=== PATIENT | female | born 1985 | race Caucasian/White ===

== ENCOUNTER 2016-08-12 10:41 | Emergency (ER) | payer MEDICAID ==
[~2016-08-12] VITALS: Ht 157.5 cm; Wt 59.9 kg
[2016-08-12 14:32] LABS: BASOPHIL % 0.4 % (0-2); PLATELET COUNT 285 x10^3mcL (130-400); RED CELL DISTRIBUTION WIDTH 12.7 % (11.5-14.5)
[2016-08-12 14:35] LABS: CALCIUM 8.6 mg/dL (8.5-10.1); CARBON DIOXIDE 27.9 mmol/L (21-32); CHLORIDE SERUM 105 mmol/L (98-107); CREATININE SERUM 0.6 mg/dL (0.6-1.0); GFR1 > 60 mL/min; GLUCOSE SERUM 79 mg/dL (74-106); POTASSIUM SERUM 4.2 mmol/L (3.5-5.1); SODIUM SERUM 140 mmol/L (136-145)
[2016-08-12 14:48] LABS: ALBUMIN 3.8 g/dL (3.4-5.0); ALKALINE PHOSPHATASE 70 U/L (46-116); ALT/SGPT 44 U/L (14-59); AST/SGOT 21 U/L (15-37); BILIRUBIN TOTAL 0.3 mg/dL (0.20-1.00); TOTAL PROTEIN, SERUM 7.7 g/dL (6.4-8.2)
[2016-08-12 15:10] LABS: microscopic required? NO
[2016-08-12 15:44] LABS: urine erythrocyte NEGATIVE (NEGATIVE)
[2016-08-12 16:43] VITALS: BP 114/71
== END 2016-08-12 16:43 | disposition home or self-care (01) ==
LOC: ED 10:41
PROVIDERS: Emergency Medicine
DX: M79.1 Myalgia (principal); R20.9 Unspecified disturbances of skin sensation

== ENCOUNTER 2017-03-21 08:20 | Emergency (ER) | payer MEDICAID ==
[~2017-03-21] VITALS: Ht 157.5 cm; Wt 59.2 kg
[2017-03-21 08:24] VITALS: BP 111/72
== END 2017-03-21 09:55 | disposition home or self-care (01) ==
LOC: ED 08:20
DX: B34.9 Viral infection, unspecified (principal); F17.210 Nicotine dependence, cigarettes, uncomplicated; Z71.6 Tobacco abuse counseling
CPT/HCPCS: 99406

== ENCOUNTER 2017-05-25 11:09 | Emergency (ER) | payer MEDICAID ==
[~2017-05-25] VITALS: Ht 154.9 cm; Wt 59.9 kg
[2017-05-25 11:29] VITALS: BP 125/44; Ht 154.9 cm; Wt 59.9 kg
== END 2017-05-25 15:00 | disposition home or self-care (01) ==
LOC: ED 11:09
DX: O26.891 Other specified pregnancy related conditions, first trimester (principal); O21.9 Vomiting of pregnancy, unspecified; R19.7 Diarrhea, unspecified; F17.210 Nicotine dependence, cigarettes, uncomplicated; Z3A.00 Weeks of gestation of pregnancy not specified

== ENCOUNTER 2017-05-30 15:18 | Emergency (ER) | payer MEDICAID ==
[~2017-05-30] VITALS: Ht 160 cm; Wt 60.9 kg
[2017-05-30 16:06] VITALS: BP 103/77; Ht 160 cm; Wt 60.9 kg
== END 2017-05-30 19:15 | disposition home or self-care (01) ==
LOC: ED 15:18
DX: O99.511 Diseases of the respiratory system complicating pregnancy, first trimester (principal); B34.9 Viral infection, unspecified; Z3A.00 Weeks of gestation of pregnancy not specified
CPT/HCPCS: 87804

== ENCOUNTER 2017-06-06 08:33 | Emergency (ER) | payer MEDICAID ==
[~2017-06-06] VITALS: Ht 154.9 cm; Wt 62.6 kg
[2017-06-06 08:49] VITALS: BP 100/71; Ht 154.9 cm; Wt 62.6 kg
== END 2017-06-06 11:50 | disposition home or self-care (01) ==
LOC: ED 08:33
DX: R42 Dizziness and giddiness (principal); R11.2 Nausea with vomiting, unspecified; R51 Headache
CPT/HCPCS: J8597; Q0162

== ENCOUNTER 2017-06-08 09:24 | Emergency (ER) | payer MEDICAID ==
[~2017-06-08] VITALS: Ht 154.9 cm; Wt 61.2 kg
[2017-06-08 09:26] VITALS: Ht 154.9 cm; Wt 61.2 kg
[2017-06-08 09:58] LABS: microscopic required? NO
[2017-06-08 10:09] LABS: BASOPHIL % 0.3 % (0-2); PLATELET COUNT 275 x10^3mcL (130-400); RED CELL DISTRIBUTION WIDTH 12.4 % (11.5-14.5)
[2017-06-08 10:21] LABS: urine erythrocyte NEGATIVE (NEGATIVE)
[2017-06-08 10:25] LABS: CALCIUM 8.1 mg/dL (8.5-10.1); CARBON DIOXIDE 25.1 mmol/L (21-32); CHLORIDE SERUM 105 mmol/L (98-107); CREATININE SERUM 0.7 mg/dL (0.6-1.0); GFR1 > 60 mL/min; GLUCOSE SERUM 85 mg/dL (74-106); POTASSIUM SERUM 3.8 mmol/L (3.5-5.1); SODIUM SERUM 139 mmol/L (136-145)
[2017-06-08 11:55] VITALS: BP 114/74
== END 2017-06-08 12:06 | disposition home or self-care (01) ==
LOC: ED 09:24
PROVIDERS: Emergency Medicine
DX: O26.891 Other specified pregnancy related conditions, first trimester (principal); R42 Dizziness and giddiness; Z3A.01 Less than 8 weeks gestation of pregnancy
CPT/HCPCS: J2405; J7030; J8597

== ENCOUNTER 2017-06-29 16:52 | Emergency (ER) | payer MEDICAID ==
[~2017-06-29] VITALS: Ht 165.1 cm; Wt 68.0 kg
[2017-06-29 17:14] VITALS: Ht 165.1 cm; Wt 68.0 kg
[2017-06-29 18:07] VITALS: BP 118/73
== END 2017-06-29 18:33 | disposition home or self-care (01) ==
LOC: ED 16:52
DX: O26.891 Other specified pregnancy related conditions, first trimester (principal); Z3A.11 11 weeks gestation of pregnancy

== ENCOUNTER 2017-07-06 19:01 | Emergency (ER) | payer MEDICAID ==
[~2017-07-06] VITALS: Ht 157.5 cm; Wt 61.2 kg
[2017-07-06 19:05] VITALS: Ht 157.5 cm; Wt 61.2 kg
[2017-07-06 21:42] VITALS: BP 124/71
== END 2017-07-06 21:42 | disposition home or self-care (01) ==
LOC: ED 19:01
DX: O26.891 Other specified pregnancy related conditions, first trimester (principal); R10.33 Periumbilical pain; R10.13 Epigastric pain; R10.30 Lower abdominal pain, unspecified; Z3A.12 12 weeks gestation of pregnancy

== ENCOUNTER 2017-12-08 10:40 | Emergency (ER) | payer MEDICAID ==
[~2017-12-08] VITALS: Ht 157.5 cm; Wt 68.0 kg
[2017-12-08 10:45] VITALS: Ht 157.5 cm; Wt 68.0 kg
[2017-12-08 12:46] VITALS: BP 112/68
== END 2017-12-08 12:47 | disposition home or self-care (01) ==
LOC: ED 10:40
DX: O26.893 Other specified pregnancy related conditions, third trimester (principal); H61.23 Impacted cerumen, bilateral; Z3A.34 34 weeks gestation of pregnancy

== ENCOUNTER 2019-01-13 07:40 | Emergency (ER) | payer MEDICAID ==
[~2019-01-13] VITALS: Ht 157.5 cm; Wt 59.0 kg
[2019-01-13 07:48] VITALS: Ht 157.5 cm; Wt 59.0 kg
[2019-01-13 08:22] LABS: microscopic required? NO
[2019-01-13 09:00] LABS: urine erythrocyte NEGATIVE (NEGATIVE)
[2019-01-13 09:55] VITALS: BP 128/67
== END 2019-01-13 09:55 | disposition home or self-care (01) ==
LOC: ED 07:40
PROVIDERS: Emergency Medicine
DX: M54.2 Cervicalgia (principal); M54.9 Dorsalgia, unspecified; Z98.890 Other specified postprocedural states
CPT/HCPCS: 82962; J1100; J1885

== ENCOUNTER 2019-06-19 07:27 | Emergency (ER) | payer MEDICAID ==
[~2019-06-19] VITALS: Ht 157.5 cm; Wt 58.1 kg
[2019-06-19 07:37] VITALS: BP 118/65; Ht 157.5 cm; Wt 58.1 kg
== END 2019-06-19 10:20 | disposition home or self-care (01) ==
LOC: ED 07:27
DX: K52.9 Noninfective gastroenteritis and colitis, unspecified (principal); Z98.890 Other specified postprocedural states
CPT/HCPCS: Q0162

== ENCOUNTER 2019-11-12 08:58 | Emergency (ER) | payer MEDICAID ==
[~2019-11-12] VITALS: Ht 157.5 cm; Wt 60.8 kg
[2019-11-12 09:06] VITALS: Ht 157.5 cm; Wt 60.8 kg
[2019-11-12 09:45] LABS: BASOPHIL % 0.5 % (0-2); PLATELET COUNT 248 x10^3mcL (130-400); RED CELL DISTRIBUTION WIDTH 12.7 % (11.5-14.5)
[2019-11-12 09:55] LABS: CALCIUM 7.9 mg/dL (8.5-10.1); CARBON DIOXIDE 25.3 mmol/L (21-32); CHLORIDE SERUM 105 mmol/L (98-107); CREATININE SERUM 0.7 mg/dL (0.6-1.0); GFR1 > 60 mL/min; GLUCOSE SERUM 103 mg/dL (74-106); POTASSIUM SERUM 3.8 mmol/L (3.5-5.1); SODIUM SERUM 139 mmol/L (136-145)
[2019-11-12 09:59] LABS: ALBUMIN 3.5 g/dL (3.4-5.0); ALKALINE PHOSPHATASE 81 U/L (46-116); ALT/SGPT 20 U/L (14-59); AST/SGOT 11 U/L (15-37); BILIRUBIN TOTAL 0.2 mg/dL (0.20-1.00); LIPASE 102 IU/L (73-393)
[2019-11-12 12:36] VITALS: BP 120/74
== END 2019-11-12 12:36 | disposition home or self-care (01) ==
LOC: ED 08:58
PROVIDERS: Emergency Medicine
DX: R10.2 Pelvic and perineal pain (principal); R10.817 Generalized abdominal tenderness; R10.31 Right lower quadrant pain; R10.32 Left lower quadrant pain; Z98.890 Other specified postprocedural states
CPT/HCPCS: 36415; J1885; Q0092